=== PATIENT | male | born 1980 | race Caucasian/White ===

== ENCOUNTER 2016-10-24 19:29 | Emergency (ER) | payer SELFPAY ==
[2016-10-24 19:37] VITALS: RESP 16; TEMP 96.2
[2016-10-24] MEDS ORDERED: ONDANSETRON 4 MG/2 ML VIAL IVP ONE (19:42)
[2016-10-24] MEDS ORDERED: Sodium Chloride 0.9% 1,000 ML PRIMARY IV ONE ×2 (19:42→20:40)
[2016-10-24 19:49] LABS: BILIRUBIN,URINE NEGATIVE (NEG); CLARITY,URINE CLEAR (CLEAR); COLOR,URINE YELLOW; GLUCOSE, URINE (UA) NEGATIVE (NEG); NITRATE,URINE NEGATIVE (NEG); OCCULT BLOOD,URINE NEGATIVE (NEG); PROTEIN,URINE 30 mg/dl (NEG); UROBILINOGEN,URINE 0.2 EU/dL (0.2)
[2016-10-24] MEDS ORDERED: ONDANSETRON 4 MG/2 ML VIAL ONE (19:49)
[2016-10-24] MEDS ORDERED: Sodium Chloride 0.9% 1,000 ML ONE (19:49)
[2016-10-24 19:50] LABS: BASOPHILS # (AUTO) 0.07 10*3/UL; BASOPHILS % (AUTO) 0.6 % (0-1); EOSINOPHILS # (AUTO) 0.15 10*3/UL; EOSINOPHILS % (AUTO) 1.3 % (0-8); HEMATOCRIT 48.3 % (42.0-52.0); HEMOGLOBIN 16.9 g/dL (14.0-18.0); LYMPHOCYTES # (AUTO) 2.78 10*3/uL; MEAN CORPUSCULAR HEMOGLOBIN 32.3 PG (27-31); MEAN CORPUSCULAR VOLUME 92.4 FL (80-90); MEAN PLATELET VOLUME 8.7 FL (7.4-12.2); MONOCYTES # (AUTO) 1.49 10*3/UL (0.3-0.8); NEUTROPHILS % (AUTO) 60.5 % (50-80); RED BLOOD COUNT 5.23 10^6/uL (4.70-6.10)
[2016-10-24 19:56] LABS: PLATELET MORPHOLOGY COMMENT NORMAL MORPHOLOGY (NORM); RBC MORPHOLOGY COMMENT NORMAL MORPHOLOGY (NORM); WBC MORPHOLOGY COMMENT NORMAL MORPHOLOGY (NORM)
[2016-10-24 19:58] LABS: BACTERIA,URINE RARE; RBC,URINE 0 /hpf; URINE SAMPLE TYPE CLEAN CATCH URINE; URINE SPECIFIC GRAVITY - MAN 1.025; WBC,URINE 0
[2016-10-24 20:00] LABS: BLOOD UREA NITROGEN 14 mg/dL (7-22); BUN/CREATININE RATIO 15.55 (6-20); CALCIUM 9.2 mg/dL (8.7-10.7); EST GLOMERULAR FILTRATION > 60 (>60 ml/min/1.73m(2)); LIPASE 94 IU/L (23-300); SERUM ALBUMIN 4.8 g/dL (3.5-4.8)
[2016-10-24 20:03] LABS: AMPHETAMINE SCREEN NEGATIVE (NEG); CANNABINOID SCREEN,URINE NEGATIVE (NEG); COCAINE SCREEN NEGATIVE (NEG); METHADONE URINE SCREEN NEGATIVE (NEG); METHAMPHETAMINES SCREEN,URINE NEGATIVE (NEG); OPIATE SCREEN,URINE NEGATIVE (NEG)
[2016-10-24] MEDS ORDERED: MORPHINE SULFATE 4 MG/1 ML IVP ONE ×2 (20:09→20:18)
[2016-10-24] MEDS ORDERED: Pantoprazole Inj 40 MG in Normal Saline Flush 10 ML IVP ONE (20:31)
[2016-10-24] MEDS ORDERED: Belladon/PHENobarbital Elixir 10 ML, Lidocaine Viscous Liquid 2% 15 ML, Mag Hyd/Al Hyd/... PO ONE ×3 (20:31)
--- NOTE | 2016-10-24 20:40 | PDOC ---
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 He denies any substantial alcohol intake though he did drink a few beers yesterday. He does not use any illicit substances. He's never had problems with gallbladder disease gallstones or epigastric issues such as ulcers or reflux or anything of that nature. He denies any nausea or vomiting he denies any bowel changes just a substantial/severe pain in the epigastrium going through to his back. - Patient Home Medications Home Medications: Home Medications NK [No Home Medications Reported] 10/24/16 - Patient Allergies Allergies/Adverse Reactions: Allergies Allergy/AdvReac Type Severity Reaction Status Date / Time Penicillins Allergy Severe Anaphylaxis Verified 10/24/16 19:30 Past Medical History - heen HEENT History: Denies History Cardiovascular History: Denies History Respiratory History: Denies History Gastrointestinal History: Pancreatitis Genitourinary History: Kidney Stones Endocrine History: Denies History Musculoskeletal History: Denies History Neurological History: Denies History Blood Disorders: Denies History Psychiatric History: Denies History Male Reproductive History: Denies History Cancer History: Denies History In Past Year Been Physically Harmed or Verbally Threatened: No History of MDRO: No Tobacco Use: Current Every Day Smoker Alcohol Use: Occasionally Substance Use Type: None Previous Surgical History: Yes Type / Date of Surgery: TONSILS Significant Family History: No pertinent family hx Past Medical History Reviewed: Reviewed - No Changes ROS - Limitations ROS Limitations: No Limitations Constitution: REPORTS: Denies Symptoms Cardiovascular: REPORTS: Denies Cardiac Symptoms Respiratory: REPORTS: Denies Resp Symptoms Neurological: REPORTS: Denies Neuro Symptoms Abdominal/Flank Pain PE - General Appearance General Appearance: POSITIVE: Alert, Cooperative, No Acute Distress - HEENT HEENT: POSITIVE: Head Inspection Nml, Eyes Inspection Nml, Ears Inspection Nml - Respiratory Respiratory: POSITIVE: No Respiratory Distress, Breath Sounds Normal - Cardiovascular Cardiovascular: POSITIVE: Regular Rate and Rhythm, Heart Sounds Normal - Abdomen Additional Abdominal Details: Palpation of his abdomen reveals some moderate tenderness in the epigastrium associated with some rebound and guarding. No Abreu's sign or specific right upper quadrant pain. Lower quadrants are benign bowel sounds are active - Back Back: POSITIVE: Normal Inspection. NEGATIVE: CVA Tenderness (R) - Neurological Neurological: POSITIVE: Affect Apporpriate Abdomen Progress - Results Reviewed by me Xrays/CTs/US Reviewed by me: Yes Radiology Findings: Multiple nonacute findings on the CT. Some possible very minimal right ascending colon inflammatory changes though this is a soft call. No obvious source for pain or leukocytosis Lab Results Reviewed: Yes Lab Results:: Laboratory Results 10/24/16 10/24/16 Range/Units 19:30 19:40 WBC 11.43 H (4.8-10.8) 10^3/uL RBC 5.23 (4.70-6.10) 10^6/uL Hgb 16.9 (14.0-18.0) g/dL Hct 48.3 (42.0-52.0) % MCV 92.4 H (80-90) FL MCH 32.3 H (27-31) PG MCHC 35.0 (33-37) g/dL RDW Std Deviation 46.6 (39-50) fL RDW Coeff of Levi 14.1 (11.5-14.5) % Plt Count 158 (140-350) 10*3/uL MPV 8.7 (7.4-12.2) FL Immature Gran % (Auto) 0.3 (0-5) % Neut % (Auto) 60.5 (50-80) % Lymph % (Auto) 24.3 (10-50) % [place] % (Auto) 13.0 (5-15) % Eos % (Auto) 1.3 (0-8) % Baso % (Auto) 0.6 (0-1) % Immature Gran # (Auto) 0.04 10*3/UL Neut # (Auto) 6.90 10*3/UL Lymph # (Auto) 2.78 10*3/uL [place] # (Auto) 1.49 H (0.3-0.8) 10*3/UL Eos # (Auto) 0.15 10*3/UL Baso # (Auto) 0.07 10*3/UL WBC Morphology Comment Normal morphology (NORM) Plt Morphology Comment Normal morphology (NORM) RBC Morph Comment Normal morphology (NORM) Sodium 138 (135-145) meq/L Potassium 3.4 L (3.8-5.2) meq/L Chloride 102 (98-112) meq/L Carbon Dioxide 23 (23-33) meq/L Anion Gap 13 (5-20) BUN 14 (7-22) mg/dL Creatinine 0.9 (0.70-1.50) mg/dL Estimated GFR > 60 (>60 ml/min/1.73m(2)) BUN/Creatinine Ratio 15.55 (6-20) Glucose 114 H (78-110) mg/dL Calculated Osmolality 287.0 (267-292) mOsm/kg Calcium 9.2 (8.7-10.7) mg/dL Total Bilirubin 0.7 (0.3-1.2) mg/dL AST 37 (21-57) IU/L ALT 37 (21-72) IU/L Alkaline Phosphatase 107 (38-126) IU/L Total Protein 8.5 H (6.1-8.0) g/dL Albumin 4.8 (3.5-4.8) g/dL Globulin 3.7 (2.50-4.10) g/dL Albumin/Globulin Ratio 1.20 L (1.3-2.0) mg/g Amylase 81 (30-110) U/L Lipase 94 (23-300) IU/L Ur Collection Type Clean catch urine Urine Color Yellow Urine Clarity Clear (CLEAR) Urine pH 7.0 (5.0-8.5) Ur Specific [place] 1.025 (1.005-1.030) U Specif Grav (Refrac) 1.025 Urine Protein 30 (NEG) mg/dl Urine Glucose (UA) Negative (NEG) mg/dL Urine Ketones Negative (NEG) Urine Occult Blood Negative (NEG) Urine Nitrate Negative (NEG) Urine Bilirubin Negative (NEG) Urine Urobilinogen 0.2 (0.2) EU/dL Ur Leukocyte Esterase Negative (NEG) Urine RBC 0 (NONE) /hpf Urine WBC 0 (NONE) Ur Squamous Epith Cells None (NONE) Ur Renal Epithelial Cell None (NONE) Urine Crystals None Urine Bacteria Rare (NONE) Urine Casts None (NONE) Urine Mucus Rare (NONE) Urine Trichomonas None (NONE) Urine Yeast None (NONE) Ur Culture Indicated? Culture not set Urine Opiates Screen Negative (NEG) Ur Buprenorphine Negative (NEG) Ur Oxycodone Screen Negative (NEG) Urine Methadone Screen Negative (NEG) Ur Propoxyphene Screen Negative (NEG) Barbiturate Screen Negative (NEG) U Tricyclic Antidepress Negative (NEG) Phencyclidine Screen Negative (NEG) Amphetamines Screen Negative (NEG) U Methamphetamines Scrn Negative (NEG) Benzodiazepines Screen Negative (NEG) Cocaine Screen Negative (NEG) U Marijuana (THC) Screen Negative (NEG) Serum Alcohol < 10 (0-10) mg/dL - Patient's Progress MDM / ED Course: Patient is feeling much better now after some IV fluids some antiemetics own dose of pain medication. He had a mild leukocytosis and no clear explanation for his pain there for CT scan of his abdomen and pelvis was performed and this shows no obvious significant pathology. He does have some mild findings and went through those findings with him and of asked him to follow-up with his primary care provider or a general surgeon to determine if he needs endoscopy interval scanning or any other additional workup. He's going to try to advance his diet very slowly over the next day or 2 and return if he has any increasing symptoms worsening symptoms or other concerns. Patient Care Time - Estimated PCT Patient Care Time (In Minutes): 45 Vital Signs - Recent Vital Signs Vital Signs: Vital Signs (Last 8 hours) Temp Pulse Resp BP Pulse Ox 10/24/16 19:32 96.2 F L 128 H 16 173/107 94 - VS Reviewed Vital Signs Reviewed: Yes Discharge Clinical Impression: Abdominal pain Discharge Disposition: Discharged to Home Condition: Stable Patient Instructions Given at Discharge: Acute Abdominal Pain (ED) Additional Instructions: Follow-up with your primary care provider in one to 2 days to determine whether you would benefit from colonoscopy or upper endoscopy. Return to the emergency department right away if you have worsening of your symptoms or anything new or different of concern Use [id number] acid blocking medication such as Prilosec or Prevacid for the next week or 2 Advance her diet slowly starting with clear liquids and then over the next 1-2 days return to normal as tolerated Avoid alcohol for a while in case it is causing her stomach to be inflamed or some of your symptoms Follow Up With: NONE,NONE [Primary Care Provider] -
--- NOTE | 2016-10-24 21:06 | DI ---
HISTORY: Clinical history was not made available at the time of interpretation. COMPARISON: None available. TECHNIQUE: Contrast-enhanced images of the abdomen and pelvis were obtained and submitted for interp retation. FINDINGS: Limited sections of the lung bases demonstrate no focal pulmonary mass. The liver, spleen, gallbladder, pancreas, both kidneys, and both adrenal glands demonstrate no acute findings. The stomach is partially collapsed and thickened. The aorta and IVC demonstrate no acute findings. There are bilateral inguinal hernias containing only fat. The urinary bladder is partially distended. Prostate gland is slightly prominent. There is moderate to severe constipation. There is mild thickening of the sigmoid colon which is pro bably due to peristalsis, although correlation with colonoscopy is recommend where appropriate. There is no obstruction. Small bowel loops are not dilated. There is very mild inflammatory change surrounding the ascending colon. This is questionable for a c olitis. The visualized appendix is grossly unremarkable. There is scattered colonic diverticulosis. The visualized osseous structures demonstrate no destructive abnormality. 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 MRI could be helpful. IMPRESSION: 1. Scattered colonic diverticulosis. 2. Possible colitis.
== END 2016-10-24 22:01 | disposition home or self-care (01) ==
LOC: ER 19:29
DX: R10.13 Epigastric pain (principal); Z72.0 Tobacco use
CPT/HCPCS: 74177; 80053; 80305; 80320; 81001; 81003; 82150; 83690; 85025; 96361; 96374; 96375; 99283; 99284; J2270; J2405; J3490; J7030